=== PATIENT | male | born 1960 | race American Indian/Alaskan Native ===

== ENCOUNTER 2020-02-29 16:54 | Emergency (ER) | payer OTHER ==
--- NOTE | 2020-02-29 17:08 | Event Note ---
ED Screening Note Date of service: 02/29/20 Time: 17:08 ED Screening Note: 59-year-old male comes in with 2-day history of rectal pain and 1 day history of eye irritation. This initial assessment/diagnostic orders/clinical plan/treatment(s) is/are subject to change based on patients health status, clinical progression and re- assessment by fellow clinical providers in the ED. Further treatment and workup at subsequent clinical providers discretion. Patient/guardian urged not to elope from the ED as their condition may be serious if not clinically assessed and managed. Initial orders include:
[2020-02-29 17:12] VITALS: BP 139/85
[2020-02-29] MEDS ORDERED: dexAMETHasone 4 MG/ML VIAL PO ONE (21:26)
--- NOTE | 2020-02-29 21:38 | Emergency Department Report ---
ED General Adult HPI - General Chief complaint: Eye Problems Stated complaint: RT FACE ABSCESS/RECTAL Time Seen by Provider: 02/29/20 20:11 Source: patient Mode of arrival: Ambulatory Limitations: No Limitations - History of Present Illness Initial comments: 59-year-old male presents emergency department complaints of pain to his right with what he feels is swelling and tenderness of an unknown etiology also has a little bump around his rectum of an unknown etiology as well. 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 Al so advised to take Bactrim DS however he did not take take the medication due to recommendation of his who advised not to take them both. He reports no fever, chills, sweats no chest pain or palpitation no nausea vomiting no headache no diplopia no odynophagia or dysphagia. - Related Data Previous Rx's Medication Instructions Recorded Last Taken Type Chlorhexidine Gluconate 5 ml TP BID #240 liquid 02/29/20 Unknown Rx [Antiseptic Skin Cleanser] Allergies Allergy/AdvReac Type Severity Reaction Status Date / Time No Known Allergies Allergy Unverified 02/29/20 17:07 ED Review of Systems ROS: Stated complaint: RT FACE ABSCESS/RECTAL Other details as noted in HPI Comment: All other systems reviewed and negative ED Past Medical Hx - Past Medical History Previous Medical History?: No - Surgical History Past Surgical History?: Yes Additional Surgical History: Left knee - Social History Smoking Status: Never Smoker Substance Use Type: None - Medications Home Medications: Home Medications Medication Instructions Recorded Confirmed Last Taken Type Chlorhexidine Gluconate 5 ml TP BID #240 liquid 02/29/20 Unknown Rx [Antiseptic Skin Cleanser] ED Physical Exam - General Limitations: No Limitations General appearance: alert, in no apparent distress - Head Head exam: Present: atraumatic, normocephalic, other - Expanded Head Exam Expanded 1 - Swelling tenderness to this region mild no crepitus, no cellulitis no lesions appreciated. Conjunctiva was of note is normal no injection no foreign bodies - Eye Eye exam: Present: normal appearance, PERRL, nystagmus - Expanded Eye Exam Expanded Eyelids: Normal Inspection: Right Pupils: Regular, Round: Bilateral Sclera/Conjunctival: Normal Inspection: Bilateral Anterior chamber: Normal Inspection: Bilateral - ENT ENT exam: Present: mucous membranes moist - Neck Neck exam: Present: normal inspection - Respiratory Respiratory exam: Present: normal lung sounds bilaterally. Absent: respiratory distress - Cardiovascular Cardiovascular Exam: Present: regular rate, normal rhythm. Absent: systolic murmur, diastolic murmur, rubs, gallop - GI/Abdominal GI/Abdominal exam: Present: soft, normal bowel sounds - Rectal Rectal exam: Present: deferred, other (Small pustule type lesion seen just outside of the rectum area draining a bloody yellowish discharge some tenderness with palpation. No induration noted) - Extremities Exam Extremities exam: Present: normal inspection - Back Exam Back exam: Present: normal inspection - Neurological Exam Neurological exam: Present: alert, oriented X3 - Psychiatric Psychiatric exam: Present: normal affect, normal mood - Skin Skin exam: Present: warm, dry, intact, normal color. Absent: rash ED Course Vital Signs 02/29/20 17:09 Temperature 98.3 F Pulse Rate 72 Respiratory 18 Rate Blood Pressure 139/85 ED Medical Decision Making - Medical Decision Making 59-year-old male with early pustule to his rectum not yet involving to a significant rectal abscess but area does have some mild tenderness there is no cellulitis or lymphangitis I advised the patient start taking his Bactrim DS and will give him a chlorhexidine wash and keep the area clean. And for the swelling to his right lower region was given an anti-inflammatory x1 no signs of any infection to that region no signs of any viral lesions. Critical care attestation.: If time is entered above; I have spent that time in minutes in the direct care of this critically ill patient, excluding procedure time. ED Disposition Clinical Impression: Abscess, Facial swelling Disposition: DC-01 TO HOME OR SELFCARE Is pt being admited?: No Does the pt Need Aspirin: No Condition: Stable Instructions: Abscess (ED), Anorectal Abscess and Anal Fistula (ED) Additional Instructions: Please start taking your Bactrim DS that you have not yet started to help treat this current condition Prescriptions: Chlorhexidine Gluconate [Antiseptic Skin Cleanser] 5 ml TP BID #240 liquid Referrals: PRIMARY CARE, [Primary Care Provider] - 3-5 Days [facility] [Provider Group] - 3-5 Days
== END 2020-02-29 21:58 | disposition home or self-care (01) ==
LOC: ED 16:54
DX: L02.01 Cutaneous abscess of face (principal); Z98.890 Other specified postprocedural states; Z79.899 Other long term (current) drug therapy
CPT/HCPCS: 99282; J1100